=== PATIENT | female | born 1990 | race Caucasian/White ===

== ENCOUNTER 2018-07-17 17:18 | Emergency (ER) | payer OTHER ==
[~2018-07-17] VITALS: Ht 167.6 cm; Wt 118.9 kg
[2018-07-17 17:36] VITALS: BP 118/66
--- NOTE | 2018-07-17 18:26 | NUR ---
PT AMBULATED TO BED 7
--- NOTE | 2018-07-17 18:30 | NUR ---
27 Y FEMALE BIB FAMILY C/O POSSIBLE , LMP 04/08/18, +NAUSEA/VOMITING, BACK AND ABDOMEN PAIN 5/10 ACHING. BOWEL SOUNDS ACTIVE IN ALL 4 QUADRANTS, ABDOMEN IS SOFT AND ROUND. PT STATES SHE WENT TO THE CLINIC YESTERDAY AND THE RESULT WAS NEGATIVE. SHE TOOK 2 TESTS AT HOME PRIOR THAT WERE POSITIVE. BED IS DOWN, LOCKED, BED RAIL X 1, ERMD NOTIFIED.
--- NOTE | 2018-07-17 19:59 | NUR ---
Dr. Lujan evaluating patient at bedside.
[2018-07-17 20:10] VITALS: BP 116/68
--- NOTE | 2018-07-17 20:10 | NUR ---
Patient discharged with v/s stable. Written and verbal after care instructions given and explained. Patient alert, oriented and verbalized understanding of instructions. Ambulatory with steady gait. All questions addressed prior to discharge. ID band removed. Patient advised to follow up with PMD. Rx of MOTRIN AND ZOFRAN given. Patient educated on indication of medication including possible reaction and side effects. Opportunity to ask questions provided and answered.
== END 2018-07-17 20:10 | disposition home or self-care (01) ==
LOC: MED 17:18
DX: M54.5 Low back pain (principal); F17.200 Nicotine dependence, unspecified, uncomplicated
CPT/HCPCS: 81002; 81025; 99283